=== PATIENT | male | born 1965 | race Caucasian/White ===

== ENCOUNTER 2019-09-21 09:19 | Day surgery (SDC) | payer OTHER ==
[2019-09-15 10:35] VITALS: BMI 35.4
[2019-09-21] MEDS ORDERED: MIDAZOLAM HCL 2 MG/2 ML SINGLE DOSE VIAL ONE (10:25)
[2019-09-21] MEDS ORDERED: LIDOCAINE HCL 2% (50ML VIAL) INF ONE (10:39)
[2019-09-21 11:23] VITALS: TEMP 97.9
[2019-09-21] MEDS ORDERED: oxyCODONE HCL 5 MG TABLET PO PRN (11:54)
[2019-09-21] MEDS ORDERED: ONDANSETRON 4 MG/2 ML VIAL IVPUSH PRN (11:54)
[2019-09-21] MEDS ORDERED: LACTATED RINGERS SOLUTION 1,000 ML IV SCH (12:00)
[2019-09-21 12:30] VITALS: BP 128/64; PULSE 76
--- NOTE | 2019-09-22 08:42 | OP ---
DATE OF OPERATION: 09/21/2019 PREOPERATIVE DIAGNOSIS: Left carpal tunnel syndrome. POSTOPERATIVE DIAGNOSIS: Left carpal tunnel syndrome. OPERATIVE PROCEDURE: Left carpal tunnel release. ANESTHESIA: Local with sedation. COMPLICATIONS: None. ESTIMATED BLOOD LOSS: Minimal. INDICATION FOR PROCEDURE: The patient is a 54-year-old male with the above finding indicated for operative treatment. Risks, benefits, alternatives were discussed with patient at length. Proper informed consent was obtained. PROCEDURE: After proper identification of patient and correct operative site patient brought to the operating room and placed supine on the table, all prominences well padded. Sedation and local anesthesia were given. Left upper extremity was prepped and draped in the usual sterile fashion. Well-padded tourniquet was placed over the sterile prep. Esmarch bandage used to exsanguinate the left upper extremity. Tourniquet was inflated to 250 mmHg. Longitudinal incision made over the proximal aspect of the palm. Incision was taken sharply through the skin, with blunt and sharp dissection through subcutaneous tissue. Palmar fascia was divided longitudinally. Transverse carpal ligament was divided longitudinally. This was done in combination with release of the distal 4 cm of antebrachial fascia. Procedure was performed with loupe magnification. This provided complete release of the median nerve at the wrist. Wound was irrigated and repaired with 5-0 fast-absorbing plain gut suture. Sterile dressings were applied. Patient was reversed from anesthesia and brought to the recovery room in stable condition. He tolerated procedure well. ANNABELLE HILTON M.D. [id number]
== END 2019-09-21 12:15 | disposition home or self-care (01) ==
LOC: FASU 09:19
PROVIDERS: ATTEND Orthopaedic Surgery Hand Surgery
PROC: 01N50ZZ Release Median Nerve, Open Approach (ICD-10-PCS; principal; 2019-09-21 11:00)
DX: G56.02 Carpal tunnel syndrome, left upper limb (principal)